=== PATIENT | male | born 2000 | race Asian ===

== ENCOUNTER 2022-02-17 20:39 | Emergency (ER) | payer OTHER ==
[~2022-02-17] VITALS: Ht 175.3 cm; Wt 65.9 kg
[2022-02-17 22:03] VITALS: BP 128/82
[2022-02-17] MEDS ORDERED: BENZ11.95 TP (23:14)
[2022-02-17] MEDS ORDERED: OXYC-38 PO (23:14)
== END 2022-02-17 23:24 | disposition home or self-care (01) ==
LOC: EMS 20:48
DX: S02.5XXA Fracture of tooth (traumatic), initial encounter for closed fracture (principal); W50.0XXA Accidental hit or strike by another person, initial encounter; Y93.67 Activity, basketball; Y92.89 Other specified places as the place of occurrence of the external cause; Y99.8 Other external cause status; Z90.89 Acquired absence of other organs
CPT/HCPCS: 99282; 99283